=== PATIENT | female | born 2000 | race Caucasian/White ===

== ENCOUNTER 2018-07-26 10:10 | Emergency (ER) | payer BC ==
[2018-07-26 10:38] VITALS: BP 111/60
--- NOTE | 2018-07-26 10:53 | UC ---
Respiratory Complaint HPI - HPI Summary HPI Summary: 17 yo female presents with mild pain during deep inspiration. The discomfort is located in the lower part of her center chest and in her back. She has no other symptoms. She has not taken anything OTC for her pain. She has been feeling well otherwise. She is on the [employer]. Non smoker. No recent travel. No personal hx or famhx of blood clots. She denies fever, chills, sore throat, cough, SOB, chest pain, abdominal pain, n/v. - History of Current Complaint Chief Complaint: UCRespiratory Stated Complaint: COUGH, CONGESTION Time Seen by Provider: 07/26/18 10:46 Hx Obtained From: Patient Hx Last Menstrual Period: 07/15/18 Timing: Intermittent Episodes Severity Initially: Mild Severity Currently: Mild Pain Intensity: 2 Pain Scale Used: 0-10 Numeric - Allergies/Home Medications Allergies/Adverse Reactions: Allergies Allergy/AdvReac Type Severity Reaction Status Date / Time No Known Allergies Allergy Verified 07/26/18 10:33 Home Medications: Home Medications Etonogest/Eth.estradiol (Nf) [Nuvaring Vaginal Ring] 1 each VAGINAL .SEE COMMENTS 07/26/18 [History Confirmed 07/26/18] PMH/Surg Hx/FS Hx/Imm Hx - Additional Past Medical History Additional PMH: None - Surgical History Surgical History: None - Family History Known Family History: Positive: None - Social History Occupation: Student Lives: Dormitory/Roommates Alcohol Use: Occasionally Substance Use Type: None Smoking Status (MU): Never Smoked Tobacco Review of Systems All Other Systems Reviewed And Are Negative: Yes Constitutional: Positive: Negative Skin: Positive: Negative Eyes: Positive: Negative ENT: Positive: Negative Respiratory: Positive: Other - Pain on deep inspiration Cardiovascular: Positive: Negative Gastrointestinal: Positive: Negative Neurovascular: Positive: Negative Musculoskeletal: Positive: Negative Neurological: Positive: Negative Psychological: Positive: Negative Physical Exam - Summary Physical Exam Summary: GENERAL: NAD. WDWN. No pain distress. SKIN: No rashes, sores, lesions, or open wounds. HEENT: Head: AT/NC Eyes: Conjunctiva clear without inflammation or discharge. Ears: Hearing grossly normal. TMs intact, no bulging, erythema, or edema. Nose: Nasal mucosa pink and moist. NTTP maxillary and frontal sinus. Throat: Posterior oropharynx without exudates, erythema, or tonsillar enlargement. Uvula midline. NECK: Supple. Nontender. No lymphadenopathy. CHEST: Mild wheezing at lung bases. No r/r. No accessory muscle use. Breathing comfortably and in no distress. CV: RRR. Without m/r/g. Pulses intact. Cap refill <2seconds MSK: Area of discomfort not reproducible on palpation. NEURO: Alert. PSYCH: Age appropriate behavior. Triage Information Reviewed: Yes Vital Signs: Initial Vital Signs Temp 98.2 F 07/26/18 10:34 Pulse 74 07/26/18 10:34 Resp 15 07/26/18 10:34 BP 111/60 07/26/18 10:34 Pulse Ox 100 07/26/18 10:34 Vital Signs Reviewed: Yes UC Diagnostic Evaluation - Laboratory O2 Sat by Pulse Oximetry: 100 Respiratory Course/Dx - Course Course Of Treatment: CXR: IMPRESSION: NO ACTIVE CARDIOPULMONARY DISEASE. PERC score 0. Discussed with pt that she has no risk factors for PE and her vitals today do not increase suspicion for such an event. Therefore, I believe her symptoms could be related to a viral infection/pleurisy. She does have mild wheezing at lung bases, therefore I will try her with albuterol inhaler and have her take ibuprofen for discomfort. F/u if symptoms persist or go to ED if her symptoms worsen. Pt voiced understanding and is in agreement with the plan. - Differential Dx/Diagnosis Provider Diagnoses: Pleurisy Discharge - Sign-Out/Discharge Documenting (check all that apply): Patient Departure All imaging exams completed and their final reports reviewed: Yes - Discharge Plan Condition: Stable Disposition: HOME Prescriptions: Albuterol HFA INHALER* [Ventolin HFA Inhaler*] 1 - 2 puff INH Q6H PRN #1 mdi PRN Reason: Wheezing Patient Education Materials: Pleurisy (ED) Referrals: No Primary Care Phys,NOPCP [Primary Care Provider] - Additional Instructions: If you develop a fever, shortness of breath, chest pain, new or worsening symptoms - please call your PCP or go to the ED. - Billing Disposition and Condition Condition: STABLE Disposition: Home - Attestation Statements Provider Attestation: I was available for consult. This patient was seen by the ALVINA. The patient was not presented to, seen by, or examined by me. -Genevieve
== END 2018-07-26 12:06 | disposition home or self-care (01) ==
LOC: UCCORT 10:10
DX: R09.1 Pleurisy (principal)
CPT/HCPCS: 71046; 99202; G0463